=== PATIENT | female | born 1970 | race Caucasian/White ===

== ENCOUNTER 2019-03-26 14:50 | Observation (INO) | payer MEDICAID, SELFPAY ==
[2019-03-26] VITALS (10 sets, daily range): BP systolic 121–136; BP diastolic 68–102; PULSE 62–77; RESP 14–18; TEMP 36.6–36.8; O2SAT 97–98; BMI 27.4; BMI 29.5
--- NOTE | 2019-03-26 15:31 | RAD_ITS ---
STUDY: X-RAY CHEST REASON FOR EXAM: Female, 48 years old. Chest discomfort and palpitations. TECHNIQUE: Single AP portable view of the chest. COMPARISON: None. FINDINGS: EKG electrodes are seen Hyperinflation. The lungs are clear. There is no demonstrated pleural abnormality. Normal size heart. Normal mediastinum and anita. Normal visualized pulmonary arteries. Normal visualized aortic arch and descending thoracic aorta. There are degenerative changes of the visualized thoracic spine. Normal visualized ribs, clavicles, and shoulders. There is no demonstrated abnormality of the visualized soft tissue structures of the upper abdomen. RAD/Chest 1 View (Portable) IMPRESSION: Hyperinflation. No acute abnormality is seen. Electronically Signed: Arnold Thakkar, at 15:55 EDT , Service support ,
--- NOTE | 2019-03-26 15:31 | EKG12_ITS ---
Test Reason : REPEAT:PALPS Blood Pressure : / mmHG Vent. Rate : 068 BPM Atrial Rate : 068 BPM P-R Int : 134 ms QRS Dur : 082 ms QT Int : 426 ms P-R-T Axes : 055 072 053 degrees QTc Int : 452 ms Sinus rhythm with occasional Premature ventricular complexes Otherwise normal ECG Confirmed by BOY CAREY, CELESTINO ([id number]), editor book TOY AU ([id number]) on 03/28/2019 11:33:31 AM Referred By: RHIANNON Confirmed By:CELESTNIO BRUNSON MD
--- NOTE | 2019-03-26 15:39 | EKG12_ITS ---
Test Reason : CP/PALPS Blood Pressure : / mmHG Vent. Rate : 075 BPM Atrial Rate : 075 BPM P-R Int : 120 ms QRS Dur : 086 ms QT Int : 400 ms P-R-T Axes : 052 073 044 degrees QTc Int : 446 ms Normal sinus rhythm Normal ECG Confirmed by BOY CAREY, CELESTINO ([id number]), managing editor TOY AU ([id number]) on 03/28/2019 11:33:47 AM Referred By: MERVAT/LALY Confirmed By:CELESTINO BRUNSON MD
[2019-03-26] MEDS: 0.9% Normal Saline 1,000 ML 1000 ML IV (15:41)
[2019-03-26 15:53] LABS: Absolute Lymphocyte Count 2.83 X10^3/ul (0.83-4.51); Absolute Neutrophil Count 6.2 X10^3/uL (2.0-7.7); Basophil# 0.06 X10^3/uL; Basophil% 0.6 % (0-1); Eosinophil# 0.07 X10^3/uL; Eosinophils% 0.7 % (0-5); Hematocrit 44.5 % (37-47); Hemoglobin 15.5 g/dl (12.0-15.0); Lymphocyte # 2.83 X10^3/ul (4.0); Lymphocyte % 29.1 % (19-41); Mean Corp Hgb Conc 34.8 g/gl (32-36); Mean Corpuscular Hgb 32.7 pg (27.0-32.0); Mean Corpuscular Volume 93.9 fL (81-99); Mean Platelet Vol. 11.8 fl (6.2-12.0); Monocyte# 0.54 X10^3/uL; Monocyte% 5.6 % (0-10); Neutrophil # 6.19 X10^3/uL (2.7-7.7); Neutrophil % 63.8 % (47-70); Platelet Count 205 K/mm3 (150-450); RBC Distribution Width CV 13.4 % (11.6-14.6); Red Blood Count 4.74 M/mm3 (4.2-5.4); White Blood Count 9.7 K/mm3 (4.4-11.0)
[2019-03-26 15:54] LABS: POSITIVE COUNT NO; POSITIVE DIFFERENTIAL NO; POSITIVE MORPHOLOGY NO
[2019-03-26 15:56] LABS: Anion Gap 5 (5-15); BUN 14 mg/dL (7-18); BUN/Creat Ratio 15.3 RATIO (10-20); Calcium,Total 9.5 mg/dL (8.5-10.1); Chloride 105 mmol/L (98-107); Creatinine, Serum 0.92 mg/dL (0.55-1.02); EST Glomerular Filtration Rate 69 mL/min (>60); Est Glom Filt Rate - Afr Amer 84 mL/min (>60); Estimated Creatinine Clearance 69.25 ml/min; Glucose 94 mg/dL (74-106); Potassium 3.8 mmol/L (3.5-5.1); Sodium Level 137 mmol/L (136-145)
--- NOTE | 2019-03-26 16:02 | ED.VISSUMM ---
- ER Visit Summary Date of Service: 03/26/19 Chief Complaint: Chest discomfort History of Present Illness: The patient is a 48 F with chest discomfort that started yesterday at 6 PM. Pain radiates into her left arm and shoulder and left throat. She feels a fluttering sensation. She took Tylenol with no improvement. Associated with some shortness of breath. Patient had a headache this morning that responded to Tylenol. She reports a history of mitral valve prolapse. She also said she had a mild heart attack which was found because of scarring on her echocardiogram. She had an unremarkable stress test. No history of stenting or bypass. She is not on blood thinners. She was told that she had blood clots in her legs in the past but that they had resolved after 2 doses of blood thinners when she was hospitalized. She reports a remote history of breast cancer and is in remission. She is a smoker. Denies hormone use. Denies recent immobilization, travel, or surgery. Physical Examination: Afebrile and vital signs unremarkable. Alert and oriented. No acute distress. Heart regular rate and rhythm. Lungs clear. Extremities nontender with no edema. Pulses strong and equal. Skin appears normal. Test Results: EKG showed sinus rhythm at a rate of 75. Hemoglobin 15.5. Metabolic panel normal. Troponin normal. D-dimer pending. Chest x-ray showed no acute findings. Emergency Department Course and Treatment: Patient has an allergy to aspirin. She was placed on a monitor. IV access obtained. Work-up as above. D-dimer was negative. I was not able to locate her prior records at the time of this dictation. Nursing ordered a repeat EKG because of a rhythm change. This showed frequent PVCs. No sign of acute ischemia or infarction pattern. Patient had no new or different symptoms. Because of her history of myocardial scarring on prior echo, and the symptoms that she is describing, I am contacting the hospitalist for observation. Treatment Plan: As above Disposition: Observation Impression: 1. Chest pain This note was generated with [employer] dictation software. It may contain incorrect words, spelling, and punctuation that were not noted in review of the chart prior to signing ED Disposition - Plan for ED Patient: Referrals: Karl Gonzalez DO [Primary Care Provider] -
[2019-03-26 16:17] LABS: D-Dimer Quantitative (DVT/PE) < 0.27 FEU/ug/m (0.27-0.49)
--- NOTE | 2019-03-26 16:22 | HP.PCM_ITS ---
History of Present Illness Date of Admission: 03/26/19 Chief Complaint: chest pain The patient is a 48 year old F with a past medical history of breast cancer status post partial mastectomy and mitral valve prolapse. She was admitted through the ED on 03/26/2019 with a complaint of chest discomfort which started on the morning of admission. She rated it about 3/10, was below the left breast and beneath the left scapula and radiated to her shoulder. She had assisted lightheadedness and dizziness and some increased sweating and also complained of a cough and shortness of breath which she thinks is due to her history of smoking. Cough was dry. Review of systems is otherwise negative. Patient states in about 2013 thereabouts, she had similar chest pain and had a stress test in our hospital which was negative. An echo done then showed that she had mitral valve prolapse. She has not followed up with any optical instrument repairer for this. Vitals in the ED was significant for blood pressure 136/102 was otherwise normal. CBC showed hemoglobin of 15.5 with platelets of 205 and normal white cell count. Chemistry was within normal limits and initial troponin was negative. Chest x-ray showed hyperinflation but no acute abnormality. She has been admitted to manage for chest pain to rule out ACS. [] Past Medical History Allergies clindamycin Allergy (Verified 03/26/19 14:59) Swelling egg Allergy (Verified 03/26/19 14:59) Other ibuprofen [From Motrin] Allergy (Verified 03/26/19 14:59) Other iodine Allergy (Verified 03/26/19 14:59) Other levofloxacin [From Levaquin] Allergy (Verified 03/26/19 14:59) Hives NSAIDS (Non-Steroidal Anti-Inflamma Allergy (Verified 03/26/19 14:59) Other tomato [Tomato] Allergy (Verified 03/26/19 14:59) Other aspirin Adverse Reaction (Verified 03/26/19 14:59) Other hydromorphone HCl [From Dilaudid] Adverse Reaction (Verified 03/26/19 14:59) Vomiting SYNTHETIC MORPHINE Allergy (Uncoded 03/26/19 14:59) Other Home Medications: Ambulatory Orders Medication Instructions Recorded Acetaminophen [Tylenol Extra 1,000 mg PO Q6H PRN PRN 03/26/19 Strength] Surgical History: - - Partial mastectomy. Psychiatric History: No pertinent psych hx SHIPPING WEIGHER History: No pertinent SHIPPING WEIGHER history Lives: With Family Smoking Status: Current every day smoker Tobacco Use: Cigarettes - 1 pack/day Alcohol: None Drugs: None - *Family History Maternal History Items: No pertinent history Paternal History Items: Cancer - Father had lung cancer, Heart Disease Review of Systems Constitutional: Denies: Chills, Fever, Malaise, Weakness, Weight Change, Fatigue Eyes: Denies: Blurred vision HEENT: Denies: Head Aches, Sinus Congestion, Sinus Drainage Cardiovascular: Reports: Chest Pain, Light Headedness. Denies: Chest Pressure, Chest Tightness, Edema, Heaviness, Orthopnea, Palpitations, Syncope Respiratory: Reports: Cough, Shortness of Breath, Shortness of breath at rest. Denies: Pleuritic Pain, Shortness of breath upon exertion, Sputum production, Wheezing Gastrointestinal: Denies: Abdominal Pain, Nausea, Vomiting Genitourinary: Denies: Dysuria Musculoskeletal: Denies: Joint Pain, Joint Tenderness Skin: Denies: Rash, Wounds Neurological: Denies: Numbness, Tingling, Focal weakness Psychiatric: Denies: Anxiety, Depression, Homicidal Ideations, Suicidal Ideations Hematologic/ Lymphatic: Denies: Easy Bruising, Easy Bleeding VTE Information - Inpt Only VTE Present on Admission: No VTE Pharm Prophylaxis ordered?: Yes - Physical Exam General: Alert, Oriented x3, Cooperative, No apparent distress HEENT: Atraumatic, PERRLA, EOMI, Normocephalic Oral: Moist Mucosa Neck: Supple, No JVD, Negative Carotid Bruits Lungs: Clear to auscultation, Normal air movement, No rhonchi, No wheeze, No rales Cardiovascular: Regular rate, Regular Rhythm, Normal S1, Normal S2, No murmurs Abdomen: Bowel Sounds Present, Soft, Non Tender, Non-Distended, No Hepato- splenomegaly Extremities: No clubbing, No cyanosis, No edema, Capillary Refill Less than 3 Seconds Skin: No rashes, No breakdown Musculoskeletal: No Tenderness to Palpation of Joints or Extremities Lymphatic: No Cervical, Supraclavicular, or Inguinal Adenopathy Neurological: Cranial nerves II-XII grossly intact, Neuro grossly intact, Motor Exam 5/5 strength throughout Psych/Mental Status: Normal Affect, Appropriate, Alert and oriented to time, place, person, mood and affect Vital Signs Temp Pulse Resp BP Pulse Ox 98.2 F 69 16 134/81 H 97 03/26/19 14:50 03/26/19 15:55 03/26/19 15:55 03/26/19 15:55 03/26/19 15:55 Oxygen Delivery Method Room Air Weight: 170 lb Body Mass Index (BMI) 27.4 Laboratory Tests Past 24 Hrs 03/26/19 03/26/19 03/26/19 15:00 15:00 15:00 WBC 9.7 RBC 4.74 Hgb 15.5 H Hct 44.5 MCV 93.9 MCH 32.7 H MCHC 34.8 RDW 13.4 RDW Differential 46.0 H Plt Count 205 MPV 11.8 Immature Gran % (Auto) 0.200 Neut % (Auto) 63.8 Lymph % (Auto) 29.1 Heard % (Auto) 5.6 Eos % (Auto) 0.7 Baso % (Auto) 0.6 Absolute Neuts (auto) 6.2 Absolute Lymphs (auto) 2.83 Total Counted Not Reportable D-Dimer Quant (PE/DVT) < 0.27 L Sodium 137 Potassium 3.8 Chloride 105 Carbon Dioxide 27.0 Anion Gap 5 BUN 14 Creatinine 0.92 Estim Creat Clear Calc 69.25 Est GFR (MDRD) Af Amer 84 Est GFR (MDRD) Non-Af 69 BUN/Creatinine Ratio 15.3 Glucose 94 Calcium 9.5 Troponin I < 0.015 Diagnostic Data Chest X-Ray 03/26/19 15:31 IMPRESSION: Hyperinflation. No acute abnormality is seen. Electronically Signed: Arnold Thakkar, at 15:55 EDT , Service support , Assessment/Plan 48 y/o female admitted with a complaint of chest pain 1. Chest pain, to r/o ACS * Admit to PCU with telemetry * Initial troponin was negative. We will cycle. * If troponins are negative, will get stress test tomorrow. * Patient allergic to aspirin,SL nitroglycerin. Check lipid panel. * 2. History of mitral valve prolapse: Diagnosed by echo about 5 years ago. Will get repeat echo to assess. 3. Nicotine dependence: Smokes about 1 pack of cigarettes per day. Chest x-ray showed hyperinflation. She complains of a dry cough. Counseled to quit smoking. Nicotine patch 21 mg daily. 4. History of breast cancer: Status post partial mastectomy. Stable. DVT prophylaxis: Lovenox Code Visit OBSV E&M: 02814 Initial observation care L2
--- NOTE | 2019-03-26 16:22 | NURSING ---
DR SOPHIE CROWELL
--- NOTE | 2019-03-26 17:19 | NURSING ---
ARRIVED TO ROOM AT 1655.
[2019-03-26 17:41] LABS: Cholesterol 167 mg/dL (200); High Density Lipoprotein 43 mg/dL; Triglycerides 134 mg/dL; Very Low Density Lipoprotein 27 mg/dL (5-40)
[2019-03-26] MEDS: 0.9% NaCl Peripheral Flush Adult/Peds IV (21:33)
[2019-03-27 02:29] VITALS: BP 107/75; PULSE 68; RESP 18; TEMP 36.4; O2SAT 95
[2019-03-27 03:05] VITALS: PULSE 62
--- NOTE | 2019-03-27 05:55 | ECHOD_ITS ---
Reason For Study: MITRAL VALVE PROLAPSE Procedure This was a 2D Doppler, Color Flow transthoracic echocardiogram. The study was technically difficult. Exam performed portable in patient room. Left Ventricle Normal LV size. Left ventricular systolic function is normal. The estimated ejection fraction is 60 %. No evidence for diastolic dysfunction. No regional wall motion abnormalities noted. Right Ventricle Normal RV size. Normal systolic function. Atria Normal left atrium. Normal right atrium. No doppler evidence for ASD. Mitral Valve There is no mitral annular calcification. Equivocal mitral valve prolapse. Trivial mitral valve insufficiency. Tricuspid Valve Normal tricuspid valve. Trivial tricuspid valve insufficiency. Right ventricular systolic pressure estimated to be 28 mmHg. Aortic Valve Trisinus/trileaflet aortic valve. Normal aortic valve. Trivial aortic valve insufficiency. Pulmonic Valve The pulmonic valve is not well visualized. Great Vessels Normal sized aortic root. Pericardium/Pleural No pericardial effusion. MMode/2D Measurements & Calculations LVIDd: 5.0 cm IVSd: 1.1 cm Ao root diam: 2.8 cm LVIDs: 3.2 cm LVPWd: 0.87 cm RVDd: 3.6 cm FS: 34.7 % LAV(MOD-bp): 64.8 ml LA A4 area: 18.0 cm2 LA dimension(2D): 3.8 cm LAV(MOD-bp) Indexed: 32.9 ml/m2 LAV(MOD-sp2): 61.5 ml LAV(MOD-sp4): 58.1 ml RA A4 area: 12.1 cm2 Time Measurements MV dec time: 0.19 sec Doppler Measurements & Calculations MV E max abdifatah: 84.5 cm/sec Lat Peak E' Abdifatah: 10.7 cm/sec Med Peak E' Abdifatah: 9.2 cm/sec MV A max abdifatah: 64.4 cm/sec E/E' lat: 7.9 E/E' med: 9.2 MV E/A: 1.3 Ao V2 max: 132.2 cm/sec LV V1 max: 119.6 cm/sec PA V2 max: 104.8 cm/sec Ao max P.0 mmHg LV V1 max P.7 mmHg TR max abdifatah: 250.5 cm/sec TR max P.1 mmHg Interpretation Summary The study was technically difficult. Left ventricular systolic function is normal. The estimated ejection fraction is 60 %. Equivocal mitral valve prolapse. Trivial mitral valve insufficiency. Trivial tricuspid valve insufficiency. Trivial aortic valve insufficiency. Right ventricular systolic pressure estimated to be 28 mmHg. No evidence for diastolic dysfunction. Ordering Physician: Abbie Guzman Referring Physician: Karl Gonzalez Performed By: Britta Brizuela, ZOHREH, RVT
[2019-03-27 06:39] LABS: Absolute Lymphocyte Count 3.09 X10^3/ul (0.83-4.51); Absolute Neutrophil Count 3.5 X10^3/uL (2.0-7.7); Basophil# 0.03 X10^3/uL; Basophil% 0.4 % (0-1); Eosinophils% 1.4 % (0-5); Hemoglobin 14.6 g/dl (12.0-15.0); Lymphocyte # 3.09 X10^3/ul (4.0); Lymphocyte % 42.7 % (19-41); Mean Corpuscular Hgb 31.9 pg (27.0-32.0); Mean Corpuscular Volume 93.9 fL (81-99); Monocyte# 0.52 X10^3/uL; Monocyte% 7.2 % (0-10); Neutrophil # 3.49 X10^3/uL (2.7-7.7); Neutrophil % 48.2 % (47-70); Platelet Count 176 K/mm3 (150-450); RBC Distribution Width CV 13.4 % (11.6-14.6); RBC Distribution Width SD 44.4 fl (35.1-43.9); Red Blood Count 4.58 M/mm3 (4.2-5.4); White Blood Count 7.2 K/mm3 (4.4-11.0)
[2019-03-27 06:40] LABS: POSITIVE COUNT NO; POSITIVE DIFFERENTIAL NO; POSITIVE MORPHOLOGY NO
[2019-03-27 07:09] LABS: Anion Gap 1 (5-15); BUN 15 mg/dL (7-18); BUN/Creat Ratio 17.3 RATIO (10-20); Calcium,Total 8.7 mg/dL (8.5-10.1); Chloride 108 mmol/L (98-107); Creatinine, Serum 0.87 mg/dL (0.55-1.02); EST Glomerular Filtration Rate 74 mL/min (>60); Est Glom Filt Rate - Afr Amer 89 mL/min (>60); Estimated Creatinine Clearance 76.07 ml/min; Glucose 99 mg/dL (74-106); Potassium 4.2 mmol/L (3.5-5.1); Sodium Level 138 mmol/L (136-145)
[2019-03-27 10:34] VITALS: BP 111/78; PULSE 57; RESP 14; TEMP 36.6; O2SAT 96
[2019-03-27] MEDS: Enoxaparin 40 MG/0.4 ML Syringe SC (10:37)
[2019-03-27 11:00] VITALS: PULSE 61
--- NOTE | 2019-03-27 11:41 | STRESSREP ---
Stress Test Report Date: 03-27-19 Procedure: Exercise tolerance test/imaging study Indications: Chest pain Consent: Per the patient Procedure: The patient exercised on a Deacon protocol for 7 minutes and 45 seconds completing Stage II and 1 minute and 45 seconds of Stage III achieving a peak heart rate of 155 bpm (90 % predicted maximal heart rate) with a peak blood pressure 182/94 mmHg and a peak MET capacity of 9 METs. The baseline ECG demonstrated sinus bradycardia. The peak exercise ECG demonstrated no obvious ECG changes. There was an occasional PVC pretest, during exercise, and recovery. The functional capacity was considered average. There was no complaint of chest discomfort during exercise or recovery. The examination was discontinued secondary to dyspnea. Impression: 1. Technically adequate (percent predicted maximal heart rate greater than 85%) exercise tolerance test 2. Peak exercise ECG with no obvious ECG changes 3. There was an occasional PVC pretest, during exercise, and recovery 4. Nuclear images pending Myocardial perfusion imaging study: Technique: The patient was injected with 11.6 mCi of technetium 99m Cardiolite and subsequently rest SPECT Cardiolite nuclear imaging was obtained in the horizontal long, vertical long, and short axis views. The patient exercised on a Deacon protocol for 7 minutes and 45 seconds completing Stage II and 1 minute and 45 seconds of Stage III achieving a peak heart rate of 155 bpm (90 % predicted maximal heart rate) with a peak blood pressure 182/94 mmHg and a peak MET capacity of 9 METs. The patient was injected with 33.3 mCi of technetium 99m Cardiolite and subsequently stress SPECT Cardiolite nuclear imaging was obtained in the horizontal long, vertical long, and short axis views. A gated Cardiolite study at peak stress was obtained. Interpretation: Rest and stress SPECT Cardiolite nuclear imaging status post realignment, normalization, and attenuation correction, demonstrates the appearance at rest of a subtle area of diminished tracer uptake in the mid anterior segments which status post stress appears to be improved and were normalized as well as a subtle area of diminished tracer uptake at both rest and stress in the apical distributions without significant change. There are similar type findings on the resting and stress polar map images. There is end systolic thickening and brightening. The gated Cardiolite study demonstrates myocardial thickening and inward wall motion. The reported LVEF is 73 %. Impression: 1. Rest and stress SPECT Cardiolite nuclear imaging demonstrate cardial perfusion changes appearing compatible with the effects of shifting soft tissue attenuation/artifact being more prominent at rest as opposed to stress as well as an area of physiologic apical thinning with no myocardial perfusion changes considered diagnostic for associated stress-induced myocardial ischemia. 2. The gated Cardiolite study reports an LVEF of 73 %. This note was generated with [employer] software. It may contain incorrect words, spelling, and punctuation that were not noted in checking the note before signing.
--- NOTE | 2019-03-27 13:24 | DCINST_ITS ---
You will use the following diet at home:: Cardiac Your food should be the consistency of: Regular Your liquids should be the consistency of: Regular/Thin Discharge Activity: Return to Normal Activity Call your doctor if you observe: Fever of 101 or Higher, Shortness of breath, Dizziness, Fainting spells, Swelling in the ankles, Chest pain, Increased palpitations (irregular heartbeat) Allergies/Adverse Reactions: Allergies clindamycin Allergy (Verified 03/26/19 14:59) Swelling egg Allergy (Verified 03/26/19 14:59) Other ibuprofen [From Motrin] Allergy (Verified 03/26/19 14:59) Other iodine Allergy (Verified 03/26/19 14:59) Other levofloxacin [From Levaquin] Allergy (Verified 03/26/19 14:59) Hives NSAIDS (Non-Steroidal Anti-Inflamma Allergy (Verified 03/26/19 14:59) Other tomato [Tomato] Allergy (Verified 03/26/19 14:59) Other aspirin Adverse Reaction (Verified 03/26/19 14:59) Other hydromorphone HCl [From Dilaudid] Adverse Reaction (Verified 03/26/19 14:59) Vomiting SYNTHETIC MORPHINE Allergy (Uncoded 03/26/19 14:59) Other Medications to take at Discharge Acetaminophen [Tylenol] 1,000 mg PO Q6H PRN PRN 03/26/19 Primary Care Physician: Karl Gonzalez DO [Primary Care Provider] - Please follow up with your Primary Care Physician in: 3-5 days Test Results: Test results from this visit will be discussed in further detail at your follow- up appointment, if applicable.
[2019-03-27 14:12] VITALS: BP 128/76; PULSE 57; RESP 14; TEMP 36.6; O2SAT 97
--- NOTE | 2019-03-27 14:57 | CHAPLAIN ---
Type of Pastoral Visit _x__ Initial Visit ___ Follow-up Visit ___ On-call Visit ___ General Patient Visit ___ Spiritual Assessment ___ Family Conference ___ Bereavement ___ Rapid Response ___ Code Blue ___ Other (describe below) Pastoral Care Referral From _x__ Patient ___ Family ___ Nurse ___ Physician ___ [employer] Boat Finisher ___ Drill Operator Automatic ___ Other (describe below) Sacrament/Intervention _x__ Active listening ___ Anointing ___ Mormon ___ Bereavement ___ Communion ___ Stella exploration ___ ___ Life review _x__ Prayer ___ Reconciliation ___ Sacrament of Sick _x__ Supportive presence ___ Wedding ___ Other (describe below) Pastoral Comments
--- NOTE | 2019-03-27 15:54 | PCM.DC.SUM ---
Discharge Date and Diagnosis Date of Admission: 03/26/19 Date of Discharge: 03/27/19 Hospital Course and Treatment Imaging Results: CXR: IMPRESSION: Hyperinflation. No acute abnormality is seen. Consults: None Operations: None Procedures: 2-D Echocardiogram - Interpretation Summary The study was technically difficult. Left ventricular systolic function is normal. The estimated ejection fraction is 60 %. Equivocal mitral valve prolapse. Trivial mitral valve insufficiency. Trivial tricuspid valve insufficiency. Trivial aortic valve insufficiency. Right ventricular systolic pressure estimated to be 28 mmHg. No evidence for diastolic dysfunction., Stress test - was an occasional PVC pretest, during exercise, and recovery 4. Nuclear images pending Impression: 1. Rest and stress SPECT Cardiolite nuclear imaging demonstrate cardial perfusion changes appearing compatible with the effects of shifting soft tissue attenuation/artifact being more prominent at rest as opposed to stress as well as an area of physiologic apical thinning with no myocardial perfusion changes considered diagnostic for associated stress-induced myocardial ischemia. 2. The gated Cardiolite study reports an LVEF of 73 %. Summary of Care Provided: HPI: The patient is a 48 year old F with a past medical history of breast cancer status post partial mastectomy and mitral valve prolapse. She was admitted through the ED on 03/26/2019 with a complaint of chest discomfort which started on the morning of admission. She rated it about 3/10, was below the left breast and beneath the left scapula and radiated to her shoulder. She had assisted lightheadedness and dizziness and some increased sweating and also complained of a cough and shortness of breath which she thinks is due to her history of smoking. Cough was dry. Review of systems is otherwise negative. Patient states in about 2013 thereabouts, she had similar chest pain and had a stress test in our hospital which was negative. An echo done then showed that she had mitral valve prolapse. She has not followed up with any ic designer standard cells for this. Vitals in the ED was significant for blood pressure 136/102 was otherwise normal. CBC showed hemoglobin of 15.5 with platelets of 205 and normal white cell count. Chemistry was within normal limits and initial troponin was negative. Chest x-ray showed hyperinflation but no acute abnormality. She has been admitted to manage for chest pain to rule out ACS. Hospital Course: 1. Chest [id number]-old female was admitted with chest pain that started on the morning of admission. She says it was around a 3 out of 10 below the left breast. She had some lightheadedness and dizziness with the episode as well as shortness of breath that she thinks it was related to her smoking. She does smoke about 1 pack of cigarettes per day. She had 3 normal troponins and normal EKG as well as normal echo. She also underwent a stress test which was unremarkable for any ischemic changes. By the day of discharge her chest pain had completely resolved. She was discharged home and will need outpatient follow-up with her primary care doctor. This was discussed with her and her who are both in agreement with the plan. - Physical Exam General: Alert, Oriented x3, Cooperative, No apparent distress HEENT: Atraumatic, PERRLA, EOMI, Normocephalic Oral: Moist Mucosa Neck: Supple, No JVD Lungs: Clear to auscultation, Normal air movement, No rhonchi, No wheeze, No rales Cardiovascular: Regular rate, Regular Rhythm, Normal S1, Normal S2, No murmurs Abdomen: Soft, Non Tender, Non-Distended, No Hepato-splenomegaly Extremities: No edema, Capillary Refill Less than 3 Seconds Skin: No rashes, No breakdown Neurological: Neuro grossly intact, Sensory exam intact to light touch and pain Psych/Mental Status: Normal Affect, Appropriate Vital Signs Temp Pulse Resp BP Pulse Ox 98 F 57 L 14 128/76 H 97 03/27/19 14:12 03/27/19 14:12 03/27/19 14:12 03/27/19 14:12 03/27/19 14:12 Oxygen Delivery Method Room Air Weight: 188 lb 4.396 oz Body Mass Index (BMI) 29.5 Intake and Output for Last 24 Hours 03/25/19 03/26/19 03/27/19 23:59 23:59 23:59 Intake Total 810 / 810 0 / 0 Output Total 300 / 300 Balance 810 / 810 -300 / -300 Laboratory Tests Past 24 Hrs 03/26/19 03/26/19 03/26/19 15:00 15:00 15:00 WBC 9.7 RBC 4.74 Hgb 15.5 H Hct 44.5 MCV 93.9 MCH 32.7 H MCHC 34.8 RDW 13.4 RDW Differential 46.0 H Plt Count 205 MPV 11.8 Immature Gran % (Auto) 0.200 Neut % (Auto) 63.8 Lymph % (Auto) 29.1 [place] % (Auto) 5.6 Eos % (Auto) 0.7 Baso % (Auto) 0.6 Absolute Neuts (auto) 6.2 Absolute Lymphs (auto) 2.83 Total Counted Not Reportable D-Dimer Quant (PE/DVT) < 0.27 L Sodium 137 Potassium 3.8 Chloride 105 Carbon Dioxide 27.0 Anion Gap 5 BUN 14 Creatinine 0.92 Estim Creat Clear Calc 69.25 Est GFR (MDRD) Af Amer 84 Est GFR (MDRD) Non-Af 69 BUN/Creatinine Ratio 15.3 Glucose 94 Calcium 9.5 Troponin I < 0.015 Triglycerides Cholesterol LDL Cholesterol VLDL Cholesterol HDL Cholesterol 03/26/19 03/26/19 03/26/19 15:00 18:25 21:24 WBC RBC Hgb Hct MCV MCH MCHC RDW RDW Differential Plt Count MPV Immature Gran % (Auto) Neut % (Auto) Lymph % (Auto) [place] % (Auto) Eos % (Auto) Baso % (Auto) Absolute Neuts (auto) Absolute Lymphs (auto) Total Counted D-Dimer Quant (PE/DVT) Sodium Potassium Chloride Carbon Dioxide Anion Gap BUN Creatinine Estim Creat Clear Calc Est GFR (MDRD) Af Amer Est GFR (MDRD) Non-Af BUN/Creatinine Ratio Glucose Calcium Troponin I < 0.015 < 0.015 Triglycerides 134 Cholesterol 167 LDL Cholesterol 97 VLDL Cholesterol 27 HDL Cholesterol 43 03/27/19 03/27/19 06:08 06:08 WBC 7.2 RBC 4.58 Hgb 14.6 Hct 43.0 MCV 93.9 MCH 31.9 MCHC 34.0 RDW 13.4 RDW Differential 44.4 H Plt Count 176 MPV 12.0 Immature Gran % (Auto) 0.100 Neut % (Auto) 48.2 Lymph % (Auto) 42.7 H [place] % (Auto) 7.2 Eos % (Auto) 1.4 Baso % (Auto) 0.4 Absolute Neuts (auto) 3.5 Absolute Lymphs (auto) 3.09 Total Counted Not Reportable D-Dimer Quant (PE/DVT) Sodium 138 Potassium 4.2 Chloride 108 H Carbon Dioxide 29.0 Anion Gap 1 L BUN 15 Creatinine 0.87 Estim Creat Clear Calc 76.07 Est GFR (MDRD) Af Amer 89 Est GFR (MDRD) Non-Af 74 BUN/Creatinine Ratio 17.3 Glucose 99 Calcium 8.7 Troponin I Triglycerides Cholesterol LDL Cholesterol VLDL Cholesterol HDL Cholesterol Discharge Activity: Return to Normal Activity Call your doctor if you observe: Fever of 101 or Higher, Shortness of breath, Dizziness, Fainting spells, Swelling in the ankles, Chest pain, Increased palpitations (irregular heartbeat) Home Medications: Medications to take at Discharge Acetaminophen [Tylenol] 1,000 mg PO Q6H PRN PRN 03/26/19 Primary Care Physician: Karl Gonzalez DO [Primary Care Provider] - Please follow up with your Primary Care Physician in: 3-5 days Disposition: Home Minutes spent on discharge:: 35 Patient Condition:: Good Medical Necessity - Tobacco Use Smoking Status: Current every day smoker Tobacco Use: Cigarettes Meaningful Use Info Meaningful Use Diagnoses (Choose all that apply): None applicable Code Visit OBSV E&M: 25993 Observation care discharge
== END 2019-03-27 14:15 | disposition home or self-care (01) ==
LOC: ED 15:31 → PCU 16:33
PROVIDERS: Admitting Provider Student in an Organized Health Care Education/Training Program; Emergency Provider Emergency Medicine; Family Provider Preventive Medicine Occupational Medicine; PCP Preventive Medicine Occupational Medicine; Visit Provider Family Medicine
DX: R07.89 Other chest pain (principal); I08.3 Combined rheumatic disorders of mitral, aortic and tricuspid valves; R06.02 Shortness of breath; R51 Headache; I25.2 Old myocardial infarction; Z85.3 Personal history of malignant neoplasm of breast; F17.210 Nicotine dependence, cigarettes, uncomplicated
CPT/HCPCS: 36415; 71045; 78452; 80048; 80061; 84484; 85025; 85379; 93005; 93017; 93306; 96360; 96372; 99218; 99285; 99406; A9500; J7030; A4216; G0378

== ENCOUNTER → 2021-05-29 | Outpatient (CLI) | payer MEDICAID, SELFPAY | END | disposition home or self-care (01) | LOC: LABSPEC 15:33 | PROVIDERS: PCP Preventive Medicine Occupational Medicine; Visit Provider Physician Assistant Surgical | DX: Z20.822 Contact with and (suspected) exposure to COVID-19 (principal) | CPT/HCPCS: 87635; U0005; U0003 ==